=== PATIENT | female | born 1995 | race Hispanic/Latino ===

== ENCOUNTER 2017-08-21 01:30 | Emergency (ER) | payer SELFPAY ==
[2017-08-21 01:46] LABS: APPEARANCE,URINE Clear (CLEAR); BILIRUBIN,URINE Negative (NEGATIVE); COLOR,URINE Yellow (YELLOW); GLUCOSE, URINE (UA) Negative (NEGATIVE); KETONES,URINE Negative (NEGATIVE); LEUKOCYTE ESTERASE ,URINE Moderate (NEGATIVE); NITRATE,URINE Negative (NEGATIVE); OCCULT BLOOD,URINE Negative (NEGATIVE); PROTEIN,URINE Negative (NEGATIVE); UROBILINOGEN,URINE 0.2 mg/dL (0.2-1.0)
[2017-08-21 02:01] LABS: BACTERIA,URINE None Seen /HPF (None Seen); MUCUS,URINE Many LPF (None Seen); RBC,URINE None Seen /HPF (0-1); SQUAMOUS EPITHELIAL CELL,UR Moderate /LPF (0-2)
[2017-08-21] MEDS ORDERED: CEFTRIAXONE SODIUM 500 MG VIAL ONE (03:15)
[2017-08-21] MEDS ORDERED: DOXYCYCLINE HYCLATE 100 MG TABLET PO ONE (03:16)
[2017-08-21] MEDS ORDERED: AZITHROMYCIN 250 MG TABLET PO ONE (03:16)
[2017-08-21] MEDS ORDERED: LIDOCAINE HCL-MPF 1% 2ML VIAL ONE (03:17)
== END 2017-08-21 04:20 | disposition home or self-care (01) ==
LOC: EDH 01:30
DX: R10.2 Pelvic and perineal pain (principal); N73.9 Female pelvic inflammatory disease, unspecified; N39.0 Urinary tract infection, site not specified; E11.9 Type 2 diabetes mellitus without complications; Z90.49 Acquired absence of other specified parts of digestive tract
CPT/HCPCS: 36415; 81001; 81025; 87486; 87797; 96372; 99284; J0696; J3490